=== PATIENT | male | born 1995 | race Caucasian/White ===

== ENCOUNTER 2018-10-23 14:42 | Emergency (ER) | payer SELFPAY ==
[2018-10-23] MEDS: predniSONE 20 MG TAB PO (15:45)
[2018-10-23] MEDS: FAMOTIDINE 20 MG TAB PO (15:47)
== END 2018-10-23 16:07 | disposition home or self-care (01) ==
LOC: FTE 14:42
DX: T63.441A Toxic effect of venom of bees, accidental (unintentional), initial encounter (principal)
CPT/HCPCS: 99283